=== PATIENT | female | born 1950 | race Caucasian/White ===

== ENCOUNTER 2017-07-28 13:04 | Outpatient (CLI) | payer BC | END 2017-07-28 13:05 | disposition home or self-care (01) | LOC: BICRAD 13:04 | PROVIDERS: ATTEND Allergy & Immunology | DX: Z03.89 Encounter for observation for other suspected diseases and conditions ruled out (principal) | CPT/HCPCS: 71046 ==

== ENCOUNTER 2022-04-12 11:17 | Outpatient (CLI) | payer BC | END 2022-04-12 11:18 | disposition home or self-care (01) | LOC: RAD 11:17 | PROVIDERS: ATTEND Internal Medicine Pulmonary Disease | DX: J45.998 Other asthma (principal) | CPT/HCPCS: 71046 ==

== ENCOUNTER 2023-02-10 13:09 | Outpatient (CLI) | payer BC | END 2023-02-10 13:10 | disposition home or self-care (01) | LOC: RAD 13:09 | PROVIDERS: ATTEND Internal Medicine | DX: J45.30 Mild persistent asthma, uncomplicated (principal) | CPT/HCPCS: 71046 ==